=== PATIENT | male | born 1985 ===

== ENCOUNTER 2018-11-04 17:19 | Emergency (ER) | payer MEDICAID, OTHER ==
[~2018-11-04] VITALS: Ht 172.7 cm; Wt 81.8 kg
[2018-11-04 17:57] VITALS: BP 148/95
== END 2018-11-04 20:21 | disposition left against medical advice (07) ==
LOC: ER 17:19
DX: L02.415 Cutaneous abscess of right lower limb (principal); L02.416 Cutaneous abscess of left lower limb; M79.644 Pain in right finger(s); Z53.21 Procedure and treatment not carried out due to patient leaving prior to being seen by health care provider

== ENCOUNTER 2025-05-26 23:13 | Emergency (ER) | payer MEDICAID, OTHER ==
[~2025-05-26] VITALS: Ht 167.6 cm; Wt 77.3 kg
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
[2025-05-26 23:24] VITALS: BP 119/78; PULSE 112; RESP 18; O2SAT 96
[2025-05-27 00:22] VITALS: TEMP 98
--- NOTE | 2025-05-27 00:26 | RADIOLOGY REPORT ---
EXAM: CT CT HEAD INDICATION: trauma TECHNIQUE: CT of the head without intravenous contrast. Radiation Dose Information: CT Dose: CTDI volume is 62.56 mGy. Dose-length product is 1179.96 mGy*cm The dose indicators for CT are the volume Computed Tomography (CT) Dose Index (CTDIvol) and the Dose Length Product (DLP), and are measured in units of mGy and mGy-cm, respectively. These indicators are not patient dose, but values generated from the CT scanner acquisition factors. The report includes radiation exposure data for exposures received during this examination. COMPARISON: None FINDINGS: Motion artifact degrades fine detail. The cerebral parenchyma appears to be normal configuration and attenuation. The ventricles, cisterns , and sulci appear age-appropriate. There is no evidence for acute territorial infarct, hemorrhage, or mass effect. The orbits are normal. The visualized paranasal sinuses and mastoid air cells are clear. The soft t issues and osseous structures appear within normal limits. IMPRESSION: 1. No acute territorial infarct, intracranial hemorrhage, or mass effect. If clinical symptoms persis t, MRI may be beneficial in further evaluation.
--- NOTE | 2025-05-27 00:49 | RADIOLOGY REPORT ---
EXAM: CT CT CERVICAL SPINE INDICATION: trauma EXAM DATE: 05/26/2025 11:53 PM COMPARISON: None TECHNIQUE: Multiple axial CT images of the cervical spine were obtained using bone algorithm. Axial a nd coronal reformatting was done. Bone and soft tissue windows were reviewed. Radiation Dose Information: CT Dose: CTDI volume is 19.82 mGy. Dose-length product is of 528.3 mGy*cm FINDINGS: No acute displaced fracture. There are degenerative changes of the cervical spine characterized by e ndplate osteophytosis and intervertebral disc space narrowing. 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 Disc osteophyte complexes efface the thecal sac and contribute to addit ional canal stenosis. A disc protrusion at C3-4 contributes to severe spinal stenosis. Degenerative u ncovertebral hypertrophy contributes to mild multilevel neural foraminal narrowing. The paraspinal so ft tissues are unremarkable. IMPRESSION: 1. No acute displaced fracture. 2. Degenerative changes of the cervical spine as detailed with multilevel severe spinal stenosis. Th is may be further evaluated with MRI as clinically indicated. 3. All CT scans at this medical facility are performed using dose modulation techniques as appropriat e to a performed exam including the following: Automated exposure control was utilized; adjustment of the MA and/or KV according to patient size; and use of iterative reconstruction technique.
== END 2025-05-27 00:23 ==
LOC: ER 23:13
DX: S01.112A Laceration without foreign body of left eyelid and periocular area, initial encounter (principal); M79.605 Pain in left leg; M54.2 Cervicalgia; F17.200 Nicotine dependence, unspecified, uncomplicated; V89.2XXA Person injured in unspecified motor-vehicle accident, traffic, initial encounter; Y93.55 Activity, bike riding; Y92.89 Other specified places as the place of occurrence of the external cause; Y99.8 Other external cause status
CPT/HCPCS: 70450; 72125; 99283; 99284